=== PATIENT | female | born 1965 | race American Indian/Alaskan Native ===

== ENCOUNTER 2019-07-20 07:15 | Outpatient (CLI) | payer OTHER ==
--- NOTE | 2019-08-02 16:04 | Mammography Report ---
DIGITAL SCREENING MAMMOGRAM WITH CAD, 07/20/2019 INDICATION: Routine screening mammography. TECHNIQUE: Digital bilateral 2D mammography was obtained in the craniocaudal and mediolateral obliq ue projections. This examination was interpreted with the benefit of Computer-Aided Detection analysi s. COMPARISON: Prior mammograms 05/11/2018, 09/27/2017, and 03/22/2017 FINDINGS: Breast Density: There are scattered areas of fibroglandular density. There is no evidence of dominant mass, suspicious calcifications or architectural distortion in eithe r breast. There has been no significant change compared with the prior examinations. IMPRESSION: Follow up recommendation: Routine yearly BI-RADS Category 1: Negative. A "normal" or negative report should not discourage follow up or biopsy of a clinically significant f inding. A written summary of these findings will be mailed to the patient. The patient will be entered into a mammography reporting system which will generate a reminder letter for the patient's next appointmen t at the appropriate interval. The [employer] recommends yearly mammograms starting at age 40 and continuing as l myra as a woman is in good health. Breast MRI is recommended for women with an approximate 20-25% or greater lifetime risk of breast cancer, including women with a strong family history of breast or ova nannette cancer or who have been treated for Hodgkin's disease. Signer Name: Iqra Morillo MD Signed: 08/02/2019 4:00 PM Workstation Name: [id number]
== END 2019-07-20 07:16 | disposition home or self-care (01) ==
LOC: MAMMO 07:15
DX: Z12.31 Encounter for screening mammogram for malignant neoplasm of breast (principal)
CPT/HCPCS: 77067

== ENCOUNTER 2020-07-22 13:01 | Outpatient (CLI) | payer OTHER ==
--- NOTE | 2020-07-23 10:35 | Mammography Report ---
DIGITAL SCREENING MAMMOGRAM WITH CAD, 07/22/2020 CLINICAL INFORMATION / INDICATION: Routine screening mammography. TECHNIQUE: Digital bilateral 2D mammography was obtained in the craniocaudal and mediolateral obliqu e projections. This examination was interpreted with the benefit of Computer-Aided Detection analysis . COMPARISON: Prior mammograms 07/20/2019 and 05/11/2018 FINDINGS: Breast Density: There are scattered areas of fibroglandular density. No dominant mass, suspicious calcifications, or architectural distortion in either breast. There has been no significant change compared with the prior examinations. IMPRESSION: No mammographic evidence of malignancy. Follow up recommendation: Routine yearly BI-RADS Category 1: Negative. A "normal" or negative report should not discourage follow up or biopsy of a clinically significant f inding. A written summary of these findings will be mailed to the patient. The patient will be entered into a mammography reporting system which will generate a reminder letter for the patient's next appointmen t at the appropriate interval. The [employer] recommends yearly mammograms starting at age 40 and continuing as l myra as a woman is in good health. Breast MRI is recommended for women with an approximate 20-25% or greater lifetime risk of breast cancer, including women with a strong family history of breast or ova nannette cancer or who have been treated for Hodgkin's disease. Signer Name: Iqra Morillo MD Signed: 07/23/2020 10:30 AM Workstation Name: [id number]
== END 2020-07-22 13:02 | disposition home or self-care (01) ==
LOC: MAMMO 13:01
PROVIDERS: ATTEND Family Medicine
DX: Z12.31 Encounter for screening mammogram for malignant neoplasm of breast (principal); N64.89 Other specified disorders of breast
CPT/HCPCS: 77067